=== PATIENT | female | born 1960 ===

== ENCOUNTER 2019-11-17 12:45 | Inpatient (IN) | payer MEDICAID ==
[~2019-11-17] VITALS: Ht 157.5 cm; Wt 73.5 kg
--- NOTE | 2019-11-17 13:31 | NUR ---
PT STATED SHE HAS BEEN DIZZY WITH NAUSEA THAT STARTED LAST NIGHT WHEN SHE GOT UP TO USE THE RESTROOM. PT A/O X4 AND SPEAKING FULL SENTENCES.
--- NOTE | 2019-11-17 13:44 | NUR ---
PT RESTING ON MEME. JENNIFER. PT STATES "I HAVE HIGH BP. I DIDN'T TAKE MY MEDICINE TODAY." JENNIFER. NO NEEDS REQUESTED AT THIS TIME
--- NOTE | 2019-11-17 14:10 | NUR ---
PT OUT OF ROOM AT IMAGING.
--- NOTE | 2019-11-17 14:34 | NUR ---
PT BACK FROM IMAGING. PT RESTING ON MEME. JENNIFER. NO OTHER NEEDS REQUESTED AT THIS TIME
[2019-11-17 14:35] LABS: BASOPHILS # (AUTO) 0.01 x10^3/uL (0-0.1); BASOPHILS % (AUTO) 0 % (0-1); EOSINOPHILS # (AUTO) 0.04 x10^3/uL (0-0.4); EOSINOPHILS % (AUTO) 0 % (1-7); LYMPHOCYTES # (AUTO) 0.69 x10^3/uL (1-3.4); LYMPHOCYTES % (AUTO) 6 % (22-44); MD NO; MEAN CORPUSCULAR HEMOGLOBIN 29.7 pg (27.0-34.8); MEAN CORPUSCULAR HGB CONC 32.6 g/dL (32.4-35.8); MEAN CORPUSCULAR VOLUME 91.2 fL (80-100); MEAN PLATELET VOLUME 9.3 fL (7.4-10.4); MONOCYTES # (AUTO) 0.48 x10^3/uL (0.2-0.8); MONOCYTES % (AUTO) 4 % (2-9); NEUTROPHILS # (AUTO) 11.51 x10^3/uL (1.8-6.8); NEUTROPHILS % (AUTO) 90 % (42-75); PLATELET COUNT 148 x10^3/uL (130-400); RED CELL DISTRIBUTION WIDTH 14.1 % (9.6-15.2)
[2019-11-17 14:45] LABS: ALBUMIN 4.6 g/dL (3.4-5.0); ANION GAP 16 mmol/L (5-15); CHLORIDE 103 mmol/L (98-107)
--- NOTE | 2019-11-17 14:48 | NUR ---
PERMISSION FROM PT TO SPEAK WITH HER NIECECEDRIC. NIECE UPDATED. STATED PT WILL CALL WHEN SHE IS READY TO D/C OR IF THE POC IS ADMISSION.
[2019-11-17 14:49] LABS: ALANINE AMINOTRANSFERASE 215 U/L (12-78); ALKALINE PHOSPHATASE 147 U/L (45-117); BILIRUBIN,TOTAL 1.3 mg/dL (0.2-1.0); CREATININE 1.24 mg/dL (0.55-1.02); TOTAL PROTEIN 9.3 g/dL (6.4-8.2)
[2019-11-17] MEDS ORDERED: LISINOPRIL PO (15:12)
--- NOTE | 2019-11-17 15:12 | NUR ---
PT STATES "I HAVEN'T BEEN CHECKING MY BLOOD SUGAR. I HAVEN'T TAKEN MY MEDS EITHER. I DON'T KNOW THE NAME OF MY MED, BUT I THINK IT STARTS WITH H. I TAKE LISINOPRIL, BUT I DON'T KNOW THE DOSE. I TAKE ANOTHER MED FOR MY BLOOD PRESSURE, BUT I DON'T KNOW THE NAME EITHER."
--- NOTE | 2019-11-17 15:29 | NUR ---
PIV ESTABLISHED. PT TOLERATED WITH NO COMPLICATIONS.
[2019-11-17] MEDS ORDERED: SODIUM CHLORIDE 0.9% 1,000ML IVBOLUS ONE (16:00)
[2019-11-17] MEDS ORDERED: INSULIN REGULAR 100 UNITS/ML, 3ML VIAL SQ-INSULIN ONE (16:00)
[2019-11-17] MEDS ORDERED: ENALAPRILAT 1.25 MG/ML, 2ML IV ONE (16:00)
--- NOTE | 2019-11-17 16:05 | NUR ---
PT STATES SHE HAS HER MEDICATIONS FILLED AT THE PHARMACY AT [facility]. I ATTEMPTED TO CALL [facility] AND THERE OFFICES ARE ONLY OPEN UNTIL 1PM DAILY. I ATTEMPTED CALLING SEVERAL OF THE ADMIN OFFICES BUT ALL NUMBERS ROLLED TO VOICE MAIL
[2019-11-17] MEDS ORDERED: INSULIN SINGLE DOSE, ER ONE (16:09)
[2019-11-17] MEDS ORDERED: ENALAPRILAT 1.25 MG/ML, 1ML ONE (16:09)
--- NOTE | 2019-11-17 16:16 | NUR ---
PT RESTING ON [place]. NADN. MEDICATION ADMINISTERED PER EMAR. NO NEEDS REQUESTED AT THIS TIME. WILL CONTINUE TO MONITOR.
--- NOTE | 2019-11-17 16:49 | NUR ---
TASK RN: OKAY BY TO GIVE PT WATER.
--- NOTE | 2019-11-17 17:01 | NUR ---
TASK RN: RN OBTAINED PT'S BGL, [phone]. RN REPORTED TO ERMD AND PRIMARY RN.
--- NOTE | 2019-11-17 17:03 | NUR ---
SPOKE WITH NIECE. NIECE STATES A SUICIDE NOTE WAS FOUND UNDER HER AUNT'S PILLOW. EDMD AWARE. NIECE IS BRINGING NOTE TO ER AND PT MEDICATIONS. NIECE ALSO STATES THAT THERE WAS AN EMPTY BOTTLE OF ACETAMINOPHEN IN THE TRASH BUT IS UNAWARE HOW MANY PILLS WERE IN THE BOTTLE.
[2019-11-17] MEDS ORDERED: ALOG25TA2 PO (17:23)
[2019-11-17] MEDS ORDERED: CHOL10003 PO (17:23)
[2019-11-17] MEDS ORDERED: AMLO10TA8 PO (17:23)
--- NOTE | 2019-11-17 17:24 | NUR ---
NOTE AND MEDS RECEIVED FROM LALO. EDMD AWARE. THE MEDICINE BOTTLE WAS LEGATRINPM.
--- NOTE | 2019-11-17 17:25 | NUR ---
PT STATES SHE WROTE THE NOTE "A FEW DAYS AGO." NO PLAN. PT STATES "I'VE FELT SUICIDAL FOR A WHILE NOW. I HAVEN'T SEEN ANYBODY." EDMD BEDSIDE SPEAKING TO PT.
[2019-11-17 17:45] LABS: SALICYLATE LEVEL < 1.7 mg/dL (2.8-20.0)
--- NOTE | 2019-11-17 17:47 | NUR ---
PT DENIED TO RN AND EDMD "I DIDN'T TAKE PILLS TO HURT MYSELF."
--- NOTE | 2019-11-17 17:50 | NUR ---
BEDSIDE REPORT TO PAT BUSBY. PT MOVED TO ROOM 2.
--- NOTE | 2019-11-17 17:50 | NUR ---
report received from gaviota cam.
--- NOTE | 2019-11-17 18:11 | NUR ---
THIS RN ORDERED SI/DIABETIC DIET TRAY FROM DIET OFFICE.
--- NOTE | 2019-11-17 18:59 | NUR ---
REPORT GIVEN TO MARSHA STEWART.
[2019-11-17 19:20] LABS: INTERNATIONAL NORMALIZED RATIO 1.03 (0.93-1.1); PROTHROMBIN TIME 10.9 Seconds (9.6-11.5)
[2019-11-17] MEDS ORDERED: ONDANSETRON 2MG/ML, 2ML IVPush PRN (19:30)
[2019-11-17] MEDS ORDERED: ONDANSETRON ODT 4 MG PO PRN (19:30)
[2019-11-17] MEDS ORDERED: ACETYLCYSTEINE IV ONE ×2 (19:30→20:30)
[2019-11-17] MEDS ORDERED: DEXTROSE 5% IV ONE ×2 (19:30→20:30)
[2019-11-17] MEDS ORDERED: hydrALAzine 20 MG/ML, 1ML IV PRN (19:30)
[2019-11-17] MEDS ORDERED: LABETALOL 5MG/ML, 20ML IVPush PRN (19:30)
[2019-11-17 19:33] LABS: ESTIMATED AVERAGE GLUCOSE 355 mg/dL (0-126)
[2019-11-17] MEDS ORDERED: HEPARIN 5,000 UNITS/ML, 1ML ONE (19:57)
[2019-11-17] MEDS: SODIUM CHLORIDE 0.9% 1,000 ML IV SCH (20:06)
[2019-11-17] MEDS: HEPARIN 5,000 UNITS/ML, 1ML SQ SCH (20:07)
[2019-11-17 20:09] LABS: MICROSCOPIC NOT IND
[2019-11-17 20:15] LABS: CULTURE INDICATED? NO
[2019-11-17 20:18] LABS: AMPHETAMINE SCREEN, URINE Negative (Negative); BARBITURATE SCREEN, URINE Negative (Negative); BENZODIAZEPINE SCREEN, URINE Negative (Negative); CANNABINOID SCREEN, URINE Negative (Negative); COCAINE SCREEN, URINE Negative (Negative); METHADONE SCREEN, URINE Negative (Negative); OPIATE SCREEN, URINE Negative (Negative)
[2019-11-17 21:05] VITALS: BP 188/104
[2019-11-17 21:06] VITALS: BP 178/101
[2019-11-17 21:07] VITALS: BP 167/103
[2019-11-17 21:30] VITALS: BP 178/111
[2019-11-17] MEDS: INSULIN GLARGINE 100 UNITS/ML, PEN SQ-INSULIN SCH (22:05)
[2019-11-17] MEDS: INSULIN LISPRO 100 UNITS/ML, PEN SQ-INSULIN SCH (22:05)
[2019-11-17 22:59] VITALS: BP 160/98
[2019-11-18 00:17] VITALS: BP 169/95
[2019-11-18] MEDS ORDERED: ACETYLCYSTEINE IV ONE ×2 (00:30→17:00)
[2019-11-18] MEDS ORDERED: DEXTROSE 5% IV ONE ×2 (00:30→17:00)
[2019-11-18] MEDS: HEPARIN 5,000 UNITS/ML, 1ML SQ SCH ×3 (04:14→20:34)
[2019-11-18 05:33] LABS: BASOPHILS # (AUTO) 0.01 x10^3/uL (0-0.1); BASOPHILS % (AUTO) 0 % (0-1); EOSINOPHILS # (AUTO) 0.04 x10^3/uL (0-0.4); EOSINOPHILS % (AUTO) 0 % (1-7); LYMPHOCYTES # (AUTO) 1.12 x10^3/uL (1-3.4); LYMPHOCYTES % (AUTO) 10 % (22-44); MD NO; MEAN CORPUSCULAR HGB CONC 32.5 g/dL (32.4-35.8); MEAN CORPUSCULAR VOLUME 92.3 fL (80-100); MONOCYTES % (AUTO) 4 % (2-9); NEUTROPHILS # (AUTO) 9.68 x10^3/uL (1.8-6.8); NEUTROPHILS % (AUTO) 85 % (42-75); PLATELET COUNT 145 x10^3/uL (130-400); RED BLOOD COUNT 5.36 x10^6/uL (3.82-5.3); RED CELL DISTRIBUTION WIDTH 14.4 % (9.6-15.2)
[2019-11-18 05:40] LABS: ALANINE AMINOTRANSFERASE 409 U/L (12-78); ALBUMIN 3.4 g/dL (3.4-5.0); ANION GAP 17 mmol/L (5-15); CALCIUM 8.5 mg/dL (8.5-10.1); CHLORIDE 113 mmol/L (98-107); CREATININE 0.81 mg/dL (0.55-1.02)
[2019-11-18 05:42] LABS: ALKALINE PHOSPHATASE 98 U/L (45-117); BILIRUBIN,TOTAL 1.1 mg/dL (0.2-1.0); TOTAL PROTEIN 7.7 g/dL (6.4-8.2)
[2019-11-18 06:52] VITALS: BP 179/98
[2019-11-18] MEDS: INSULIN GLARGINE 100 UNITS/ML, PEN SQ-INSULIN SCH ×2 (09:30→20:35)
[2019-11-18] MEDS: SODIUM CHLORIDE 0.9% 1,000 ML IV SCH ×2 (09:31→20:36)
[2019-11-18] MEDS: INSULIN LISPRO 100 UNITS/ML, PEN SQ-INSULIN SCH ×4 (09:31→20:34)
[2019-11-18] MEDS: AMLODIPINE 10 MG TAB PO SCH (09:31)
[2019-11-18 14:20] VITALS: BP 150/86
[2019-11-18 15:31] LABS: INTERNATIONAL NORMALIZED RATIO 1.19 (0.93-1.1); PROTHROMBIN TIME 12.6 Seconds (9.6-11.5)
[2019-11-18 15:36] LABS: ALKALINE PHOSPHATASE 94 U/L (45-117); BILIRUBIN,TOTAL 1.2 mg/dL (0.2-1.0); TOTAL PROTEIN 7.4 g/dL (6.4-8.2)
[2019-11-18 15:40] LABS: ALANINE AMINOTRANSFERASE 629 U/L (12-78); ALBUMIN 3.3 g/dL (3.4-5.0); ANION GAP 13 mmol/L (5-15); CALCIUM 8.7 mg/dL (8.5-10.1); CHLORIDE 112 mmol/L (98-107); CREATININE 0.74 mg/dL (0.55-1.02)
[2019-11-18] MEDS: OXYcodone IR 5MG TABLET PO PRN (16:43)
[2019-11-18 19:52] VITALS: BP 133/79
[2019-11-18 19:53] VITALS: BP 148/88
[2019-11-18 19:54] VITALS: BP 153/97
[2019-11-19 01:41] VITALS: BP 135/80
[2019-11-19] MEDS: HEPARIN 5,000 UNITS/ML, 1ML SQ SCH ×3 (04:39→20:02)
[2019-11-19] MEDS: OXYcodone IR 5MG TABLET PO PRN ×2 (04:39→17:42)
[2019-11-19 05:05] LABS: ANION GAP 11 mmol/L (5-15); CALCIUM 8.3 mg/dL (8.5-10.1); CHLORIDE 110 mmol/L (98-107); CREATININE 0.58 mg/dL (0.55-1.02)
[2019-11-19 05:19] LABS: BASOPHILS # (AUTO) 0.02 x10^3/uL (0-0.1); BASOPHILS % (AUTO) 0 % (0-1); EOSINOPHILS % (AUTO) 0 % (1-7); LYMPHOCYTES # (AUTO) 1.63 x10^3/uL (1-3.4); LYMPHOCYTES % (AUTO) 22 % (22-44); MD NO; MEAN CORPUSCULAR HGB CONC 32.7 g/dL (32.4-35.8); MEAN CORPUSCULAR VOLUME 91.7 fL (80-100); MEAN PLATELET VOLUME 8.8 fL (7.4-10.4); MONOCYTES # (AUTO) 0.43 x10^3/uL (0.2-0.8); MONOCYTES % (AUTO) 6 % (2-9); NEUTROPHILS # (AUTO) 5.38 x10^3/uL (1.8-6.8); NEUTROPHILS % (AUTO) 72 % (42-75); PLATELET COUNT 123 x10^3/uL (130-400); RED BLOOD COUNT 4.99 x10^6/uL (3.82-5.3); RED CELL DISTRIBUTION WIDTH 14.3 % (9.6-15.2)
[2019-11-19] MEDS ORDERED: POTASSIUM CHLORIDE 20 MEQ TAB.ER.PRT PO ONE ×2 (08:00→13:00)
[2019-11-19] MEDS: AMLODIPINE 10 MG TAB PO SCH (08:02)
[2019-11-19 08:07] VITALS: BP 169/93
[2019-11-19] MEDS: INSULIN GLARGINE 100 UNITS/ML, PEN SQ-INSULIN SCH ×2 (08:14→20:06)
[2019-11-19] MEDS: INSULIN LISPRO 100 UNITS/ML, PEN SQ-INSULIN SCH ×4 (08:15→20:05)
[2019-11-19 09:28] LABS: ALANINE AMINOTRANSFERASE 628 U/L (12-78); ALBUMIN 2.8 g/dL (3.4-5.0); ANION GAP 11 mmol/L (5-15); CALCIUM 8.2 mg/dL (8.5-10.1); CHLORIDE 109 mmol/L (98-107); CREATININE 0.59 mg/dL (0.55-1.02)
[2019-11-19 09:29] LABS: INTERNATIONAL NORMALIZED RATIO 1.12 (0.93-1.1); PROTHROMBIN TIME 11.9 Seconds (9.6-11.5)
[2019-11-19 09:31] LABS: ALKALINE PHOSPHATASE 77 U/L (45-117); TOTAL PROTEIN 6.5 g/dL (6.4-8.2)
[2019-11-19 10:07] VITALS: BP 136/75
[2019-11-19 12:57] VITALS: BP 131/81
[2019-11-19] MEDS: SODIUM CHLORIDE 0.9% 1,000 ML IV SCH (13:02)
[2019-11-19] MEDS ORDERED: ACETYLCYSTEINE 7,200 MG in DEXTROSE 5% 1,000 ML IV ONE (13:30)
[2019-11-19 15:11] LABS: ANION GAP 10 mmol/L (5-15); CHLORIDE 109 mmol/L (98-107)
[2019-11-19 15:12] LABS: ALANINE AMINOTRANSFERASE 551 U/L (12-78); ALBUMIN 2.7 g/dL (3.4-5.0)
[2019-11-19 15:14] LABS: ALKALINE PHOSPHATASE 75 U/L (45-117); BILIRUBIN,TOTAL 1.5 mg/dL (0.2-1.0); TOTAL PROTEIN 6.1 g/dL (6.4-8.2)
[2019-11-19 20:11] VITALS: BP 151/91
[2019-11-20 01:13] VITALS: BP 145/92
[2019-11-20] MEDS: SODIUM CHLORIDE 0.9% 1,000 ML IV SCH ×2 (01:55→15:33)
[2019-11-20] MEDS: HEPARIN 5,000 UNITS/ML, 1ML SQ SCH ×3 (04:00→20:23)
[2019-11-20 05:48] LABS: CHLORIDE 107 mmol/L (98-107)
[2019-11-20 05:54] LABS: BASOPHILS # (AUTO) 0.03 x10^3/uL (0-0.1); BASOPHILS % (AUTO) 1 % (0-1); EOSINOPHILS # (AUTO) 0.05 x10^3/uL (0-0.4); EOSINOPHILS % (AUTO) 1 % (1-7); LYMPHOCYTES # (AUTO) 1.91 x10^3/uL (1-3.4); LYMPHOCYTES % (AUTO) 43 % (22-44); MD NO; MEAN CORPUSCULAR HEMOGLOBIN 30.4 pg (27.0-34.8); MEAN CORPUSCULAR HGB CONC 33.4 g/dL (32.4-35.8); MEAN CORPUSCULAR VOLUME 91.1 fL (80-100); MEAN PLATELET VOLUME 8.3 fL (7.4-10.4); MONOCYTES # (AUTO) 0.31 x10^3/uL (0.2-0.8); MONOCYTES % (AUTO) 7 % (2-9); NEUTROPHILS % (AUTO) 48 % (42-75); PLATELET COUNT 115 x10^3/uL (130-400); RED CELL DISTRIBUTION WIDTH 13.9 % (9.6-15.2)
[2019-11-20 05:59] LABS: ALANINE AMINOTRANSFERASE 423 U/L (12-78); ALBUMIN 2.5 g/dL (3.4-5.0); ALKALINE PHOSPHATASE 73 U/L (45-117); ANION GAP 7 mmol/L (5-15); BILIRUBIN,TOTAL 1.7 mg/dL (0.2-1.0); CALCIUM 8.2 mg/dL (8.5-10.1); CREATININE 0.44 mg/dL (0.55-1.02); TOTAL PROTEIN 5.9 g/dL (6.4-8.2)
[2019-11-20] MEDS: OXYcodone IR 5MG TABLET PO PRN ×2 (06:38→19:20)
[2019-11-20 07:05] VITALS: BP 154/91
[2019-11-20] MEDS: AMLODIPINE 10 MG TAB PO SCH (08:14)
[2019-11-20] MEDS: INSULIN GLARGINE 100 UNITS/ML, PEN SQ-INSULIN SCH ×2 (08:15→20:23)
[2019-11-20] MEDS: INSULIN LISPRO 100 UNITS/ML, PEN SQ-INSULIN SCH ×4 (08:16→20:24)
[2019-11-20 12:15] VITALS: BP 125/73
[2019-11-20] MEDS ORDERED: ACETYLCYSTEINE 7,200 MG in DEXTROSE 5% 1,000 ML IV ONE (18:30)
[2019-11-20 19:17] VITALS: BP 133/84
[2019-11-20] MEDS: POTASSIUM CHLORIDE 20 MEQ TAB.ER.PRT PO SCH (22:38)
[2019-11-21 00:30] VITALS: BP 144/90
[2019-11-21] MEDS: HEPARIN 5,000 UNITS/ML, 1ML SQ SCH ×3 (04:36→20:14)
[2019-11-21] MEDS: SODIUM CHLORIDE 0.9% 1,000 ML IV SCH ×2 (04:36→17:53)
[2019-11-21 05:44] LABS: INTERNATIONAL NORMALIZED RATIO 1.05 (0.93-1.1); PROTHROMBIN TIME 11.1 Seconds (9.6-11.5)
[2019-11-21 05:45] LABS: ALBUMIN 2.5 g/dL (3.4-5.0); ANION GAP 8 mmol/L (5-15); CALCIUM 8.5 mg/dL (8.5-10.1); CHLORIDE 104 mmol/L (98-107)
[2019-11-21 05:49] LABS: ALANINE AMINOTRANSFERASE 299 U/L (12-78); ALKALINE PHOSPHATASE 85 U/L (45-117); BILIRUBIN,TOTAL 0.9 mg/dL (0.2-1.0); CREATININE 0.46 mg/dL (0.55-1.02)
[2019-11-21 06:03] LABS: BASOPHILS # (AUTO) 0.01 x10^3/uL (0-0.1); BASOPHILS % (AUTO) 0 % (0-1); EOSINOPHILS # (AUTO) 0.08 x10^3/uL (0-0.4); EOSINOPHILS % (AUTO) 2 % (1-7); LYMPHOCYTES # (AUTO) 1.83 x10^3/uL (1-3.4); LYMPHOCYTES % (AUTO) 51 % (22-44); MD NO; MEAN CORPUSCULAR HEMOGLOBIN 29.9 pg (27.0-34.8); MEAN CORPUSCULAR HGB CONC 33.2 g/dL (32.4-35.8); MEAN CORPUSCULAR VOLUME 90.1 fL (80-100); MEAN PLATELET VOLUME 9.4 fL (7.4-10.4); MONOCYTES # (AUTO) 0.28 x10^3/uL (0.2-0.8); MONOCYTES % (AUTO) 8 % (2-9); NEUTROPHILS % (AUTO) 39 % (42-75); PLATELET COUNT 115 x10^3/uL (130-400); RED BLOOD COUNT 4.68 x10^6/uL (3.82-5.3); RED CELL DISTRIBUTION WIDTH 13.6 % (9.6-15.2)
[2019-11-21 06:51] VITALS: BP 138/86
[2019-11-21] MEDS: AMLODIPINE 10 MG TAB PO SCH (08:12)
[2019-11-21] MEDS: INSULIN GLARGINE 100 UNITS/ML, PEN SQ-INSULIN SCH ×2 (08:13→20:15)
[2019-11-21] MEDS: POTASSIUM CHLORIDE 20 MEQ TAB.ER.PRT PO SCH ×2 (08:13→16:54)
[2019-11-21] MEDS: INSULIN LISPRO 100 UNITS/ML, PEN SQ-INSULIN SCH ×4 (08:14→20:15)
[2019-11-21 12:06] VITALS: BP 133/81
[2019-11-21] MEDS: OXYcodone IR 5MG TABLET PO PRN (16:54)
[2019-11-21 20:07] VITALS: BP 130/78
[2019-11-22 02:25] VITALS: BP 121/74
[2019-11-22] MEDS: HEPARIN 5,000 UNITS/ML, 1ML SQ SCH ×2 (04:20→12:54)
[2019-11-22 05:44] LABS: BASOPHILS # (AUTO) 0.01 x10^3/uL (0-0.1); BASOPHILS % (AUTO) 0 % (0-1); EOSINOPHILS # (AUTO) 0.11 x10^3/uL (0-0.4); EOSINOPHILS % (AUTO) 3 % (1-7); LYMPHOCYTES # (AUTO) 1.78 x10^3/uL (1-3.4); LYMPHOCYTES % (AUTO) 54 % (22-44); MD NO; MEAN CORPUSCULAR HEMOGLOBIN 30.2 pg (27.0-34.8); MEAN CORPUSCULAR HGB CONC 33.7 g/dL (32.4-35.8); MEAN CORPUSCULAR VOLUME 89.7 fL (80-100); MEAN PLATELET VOLUME 8.8 fL (7.4-10.4); MONOCYTES % (AUTO) 9 % (2-9); NEUTROPHILS # (AUTO) 1.09 x10^3/uL (1.8-6.8); NEUTROPHILS % (AUTO) 33 % (42-75); PLATELET COUNT 116 x10^3/uL (130-400); RED BLOOD COUNT 4.63 x10^6/uL (3.82-5.3); RED CELL DISTRIBUTION WIDTH 13.6 % (9.6-15.2)
[2019-11-22 05:52] LABS: CHLORIDE 106 mmol/L (98-107)
[2019-11-22 05:59] LABS: ALANINE AMINOTRANSFERASE 215 U/L (12-78); ALBUMIN 2.7 g/dL (3.4-5.0); ALKALINE PHOSPHATASE 74 U/L (45-117); ANION GAP 6 mmol/L (5-15); BILIRUBIN, DIRECT 0.2 mg/dL (0.1-0.2); BILIRUBIN,INDIRECT 0.6 mg/dL (0.0-2.0); BILIRUBIN,TOTAL 0.8 mg/dL (0.2-1.0); CALCIUM 8.9 mg/dL (8.5-10.1); CREATININE 0.41 mg/dL (0.55-1.02); TOTAL PROTEIN 6.1 g/dL (6.4-8.2)
[2019-11-22 06:58] VITALS: BP 138/76
[2019-11-22] MEDS: SODIUM CHLORIDE 0.9% 1,000 ML IV SCH (07:58)
[2019-11-22] MEDS: INSULIN LISPRO 100 UNITS/ML, PEN SQ-INSULIN SCH ×3 (07:58→16:59)
[2019-11-22] MEDS: POTASSIUM CHLORIDE 20 MEQ TAB.ER.PRT PO SCH (07:59)
[2019-11-22] MEDS: AMLODIPINE 10 MG TAB PO SCH (07:59)
[2019-11-22] MEDS: INSULIN GLARGINE 100 UNITS/ML, PEN SQ-INSULIN SCH (07:59)
[2019-11-22] MEDS: OXYcodone IR 5MG TABLET PO PRN ×2 (09:41→18:46)
[2019-11-22 13:31] VITALS: BP 158/93
== END 2019-11-22 20:15 | DRG 918 ==
LOC: EDBD 12:45 → ED 14:25 → EDIP 18:15 → 4WST 20:49
PROVIDERS: ADMIT Internal Medicine; ATTEND Hospitalist
DX: T39.1X2A Poisoning by 4-Aminophenol derivatives, intentional self-harm, initial encounter (principal); E87.2 Acidosis; R45.851 Suicidal ideations; E11.65 Type 2 diabetes mellitus with hyperglycemia; E86.0 Dehydration; G43.909 Migraine, unspecified, not intractable, without status migrainosus; I10 Essential (primary) hypertension; Z79.84 Long term (current) use of oral hypoglycemic drugs; Z83.3 Family history of diabetes mellitus; Z86.73 Personal history of transient ischemic attack (TIA), and cerebral infarction without residual deficits; Z88.6 Allergy status to analgesic agent; Y92.89 Other specified places as the place of occurrence of the external cause; Z79.899 Other long term (current) drug therapy
CPT/HCPCS: 36415; 70551; 80048; 80053; 80076; 80307; 81003; 82962; 83036; 83735; 85025; 85610; 93005; 93306; 96361; 96372; 96374; 99291; G0378; J0132; J1644; J2405; J7060; J7070; J0360; J1815; J7030